=== PATIENT | female | born 1975 | race Caucasian/White ===

== ENCOUNTER 2022-10-10 15:12 | Outpatient (CLI) | payer BC | END 2022-10-10 23:59 | disposition home or self-care (01) | LOC: VAS 15:12 | PROVIDERS: ATTEND Family Medicine | DX: M21.42 Flat foot [pes planus] (acquired), left foot (principal); M25.375 Other instability, left foot; M72.2 Plantar fascial fibromatosis; M25.472 Effusion, left ankle; M79.672 Pain in left foot | CPT/HCPCS: 93971 ==